=== PATIENT | female | born 1950 | race Caucasian/White ===

== ENCOUNTER 2022-06-28 14:26 | Outpatient (REF) | payer MEDICARE, OTHER, SELFPAY ==
[2022-06-28 15:43] LABS: Vitamin B12 375 pg/mL (200-900)
== END 2022-06-28 14:27 | disposition home or self-care (01) ==
LOC: HO.LAB 14:26
PROVIDERS: PCP Internal Medicine; Visit Provider Psychiatry & Neurology Neurology
DX: G31.84 Mild cognitive impairment of uncertain or unknown etiology (principal)
CPT/HCPCS: 36415; 82607

== ENCOUNTER 2025-03-20 08:42 | Outpatient (AMB) | payer MEDICARE, OTHER, SELFPAY ==
--- NOTE | 2025-03-20 08:51 | MHC.OFFVIS ---
Intake Visit Reasons: 6 month AD/ Conf Accompanied by: Daughter Allergies acetaminophen (From PERCOCET) Allergy (Unknown, Unverified 03/20/25 08:55) VOMITING oxycodone (From PERCOCET) Allergy (Unknown, Unverified 03/20/25 08:55) VOMITING Medication List - Last Reconciled 03/20/25 by Rae Corral CNP atorvastatin 10 mg PO DAILY donepezil 10 mg PO BEDTIME lorazepam mg PO memantine 5 mg PO BID metformin 500 mg PO DAILY metoprolol tartrate 12.5 mg PO BID sertraline 50 mg PO DAILY warfarin mg PO HPI Comments Details: 74-year-old woman with dementia. She was doing okay. She was living alone. She had family that checked in on her and [employer] 3 days/week who helped with cooking and cleaning. She was not cooking anymore, except for making toast. A few days ago, she accidentally left the faucet running in the kitchen. No safety concerns. She was walking her dog once a day. No falls. Mood was okay. Sleep was okay. [facility] Medical History (Updated 03/20/25 @ 08:55 by Rae Corral CNP) Alzheimer dementia MCI (mild cognitive impairment) Review of Systems Const Denies chills, Denies daytime sleepiness, Denies difficulty sleeping, Denies fatigue, Denies fever(s), Denies frequent falls, Denies headache(s), Denies increased appetite, Denies poor appetite, Denies snoring, Denies weakness, Denies weight gain and Denies weight loss Eyes Denies loss of vision ENT Denies vertigo, Denies dizziness and Denies headache(s) Card Denies chest pain at rest, Denies chest pain with activity, Denies syncope, Denies leg edema and Denies palpitations Resp Denies snoring GI Denies constipation, Denies heartburn, Denies diarrhea and Denies nausea Denies urinary frequency, Denies urinary incontinence and Denies urinary urgency Musc Denies abnormal gait, Denies numbness and Denies tingling Skin/Breast Denies dry skin and Denies rash Neuro Denies abnormal gait, Denies vertigo, Denies dizziness, Denies syncope, Denies frequent falls, Denies headache(s), Denies lack of coordination, Denies loss of vision, Reports memory loss, Denies numbness, Denies restless legs, Denies seizure-like activity, Denies tingling, Denies paresthesias, Denies tremor(s) and Denies weakness Psych Reports anxiety, Denies depression, Denies auditory hallucinations, Reports memory loss, Denies visual hallucinations and Denies suicidal ideation Endo Denies fatigue and Denies palpitations Physical Exam Const Other: General Appearance:? normal, in no acute distress. Skin:? no rashes, no significant birthmarks. Heart:? S1, S2 normal, no murmurs. Lungs:? clear anteriorly and posteriorly. Extremities:? no edema. Psych:? alert, cooperative with exam. Neuro Other: Mental Status:?Alert, normal affect. She is able to tell me she is here with her daughter. She is able to tell me her date. She is unable to tell me her age. Cranial Nerves:?Pupils are equal, round and reactive to light. External occular muscles are intact. Visual silverman are full. Face is symmetrical. Facial sensations are normal. Tongue is midline. Palate elevates symmetrically. Shoulder shrugging is normal. Hearing to bedside conversation is normal. Sensory Exam:?....? Coordination:?No ataxia,?no titubation.? Gait Exam: Within normal limits. Cerebellar Signs:?Ropacu-kl-ejoi and kcid-ts-mryo is normal.? Extrapyramidal System:?No tremor, rigidity with normal facial expressions.? Pronator Drift:?Not present.? Involuntary Movements:?No tremors seen.? Speech:?Normal.? Assessment & Plan Assessment & Plan (1) Alzheimer dementia: Code(s): G30.9 - Alzheimer's disease, unspecified; F02.80 - Dementia in other diseases classified elsewhere, unspecified severity, without behavioral disturbance, psychotic disturbance, mood disturbance, and anxiety Category: Medical Qualifiers: Alzheimer's disease onset: unspecified onset Dementia severity: unspecified severity Dementia behavioral or psychological symptom: unspecified whether behavioral, psychotic, or mood disturbance or anxiety Qualified Code(s): G30.9 - Alzheimer's disease, unspecified; F02.80 - Dementia in other diseases classified elsewhere, unspecified severity, without behavioral disturbance, psychotic disturbance, mood disturbance, and anxiety Plan: Continue donepezil 10mg 1 tablet at bedtime Continue memantine 5mg 1 tablet twice a day Stay physically and socially active. Coding Level of Care Code Est Pt Level 3 (22085) Diagnoses Alzheimer's dementia, unspecified dementia severity, unspecified timing of dementia onset, unspecified whether behavioral, psychotic, or mood disturbance or anxiety G30.9; F02.80 Alzheimer's disease onset: unspecified onset Dementia severity: unspecified severity Dementia behavioral or psychological symptom: unspecified whether behavioral, psychotic, or mood disturbance or anxiety
--- OUTSIDE RECORDS SUMMARY | 2025-03-20 08:57 | XMS_ITS ---
Author Name [facility] Organization Unknown History of Medication Use Medication Directions Dispensed Refills Start Date End Date Stat atorvastatin 10 mg tablet TAKE 1 TABLET BY MOUTH EVERY DAY active atorvastatin 10 mg tablet TAKE 1 TABLET BY MOUTH EVERY DAY active brimonidine 0.2 %-timolol 0.5 % eye drops INSTILL ONE DROP TO BOTH EYES TWICE DAILY active brimonidine 0.2 %-timolol 0.5 % eye drops INSTILL ONE DROP TO BOTH EYES TWICE DAILY active donepezil 5 mg tablet TAKE 1 TABLET BY MOUTH EVERY DAY AT BEDTIME FOR 90 DAYS active hydromorphone 2 mg tablet TAKE 1 TABLET EVERY 4 TO 6 HOURS BY MOUTH active lisinopril 30 mg tablet TAKE 1 TABLET BY MOUTH EVERY DAY active metformin 500 mg tablet TAKE 1 TABLET BY MOUTH EVERY DAY WITH BREAKFAST active metformin 500 mg tablet TAKE 1 TABLET BY MOUTH EVERY DAY WITH BREAKFAST active methylprednisolone 4 mg tablets in a dose pack TAKE 6 TABLETS ON DAY 1 DIRECTED ON PACKAGE AND DECREASE BY 1 TAB EACH DAY FOR A TOTAL OF 6 DAYS active metoprolol tartrate 25 mg tablet TAKE 1 TABLET BY MOUTH TWICE A DAY active sertraline 50 mg tablet TAKE 1 TABLET BY MOUTH EVERY DAY active timolol maleate 0.5 % eye drops INSTILL 1 DROP INTO BOTH EYES EVERY DAY IN THE MORNING active timolol maleate 0.5 % eye drops INSTILL 1 DROP INTO BOTH EYES EVERY DAY IN THE MORNING active tobramycin 0.3 % eye drops APPLY 1 DROP TO THE EYE EVERY 4 HOURS (WHILE AWAKE) FOR 7 DAYS. active tramadol 50 mg tablet TAKE 1 TABLET BY MOUTH EVERY 8 HOURS NEEDED FOR PAIN active Problems Problem Status Onset Date Problem Type Date of Resoluti on Source Osteoarthritis of right knee joint active 2023-02-08 ProblemAct [facility] Arthritis of knee active 2023-02-08 ProblemAct [facility] History of right total knee replacement active 2023-04-21 ProblemAct [facility] Encounters Encounter Type Encounter Reason Primary Diagnosis Location Date Ambulatory [facility] 04/30/2024 Ambulatory [facility] 08/26/2023 Ambulatory [facility] 08/24/2023 Ambulatory [facility] 05/23/2023 Ambulatory [facility] 05/20/2023 Ambulatory [facility] 05/17/2023 Ambulatory [facility] 04/21/2023 Ambulatory [facility] 04/21/2023 Ambulatory [facility] 04/19/2023 Ambulatory [facility] 04/15/2023 Ambulatory Anxiety disorder, unspecified Anxiety disorder, unspecified [facility] 04/04/2023 Ambulatory [facility] 03/31/2023 Ambulatory Anemia, unspecified Anemia, unspecified [facility] 03/10/2023 [facility] 03/07/2023 Ambulatory [facility] 02/24/2023 Ambulatory [facility] 02/08/2023 Ambulatory [facility] 02/08/2023 Ambulatory [facility] 02/08/2023 Ambulatory [facility] 01/10/2023 Ambulatory [facility] 01/10/2023 Ambulatory [facility] 01/10/2023 Ambulatory [facility] 01/10/2023 Ambulatory [facility] 01/06/2023 Ambulatory [facility] 11/16/2022 Care Team Organization Name Specialty Phone Email Start Date End Da te [facility] 202203/05/2025 [facility] 023 03/10/2023 [facility] 03/05/2025 [facility] 01/28/2023 04/09/2024 [facility] MARIEL FARRAR Primary Care 07/22/2022 04/09/2024 [facility] Deanna Mckeon Primary Care 06/29/2022 [facility]
--- OUTSIDE RECORDS SUMMARY | 2025-03-20 08:58 | XMS_ITS | Clinical Summary ---
Author Organization [facility] Address [address] [place] [address] Care Team Providers Care Scada Engineer Name Role Phone Ryan Sellers MD Primary Care Provider [phone] Allergies Active Allergy Reactions Criticality Noted Date Comments Oxycodone Nausea And Vomiting 04/06/2021 Oxycodone-Acetaminophen Nausea And Vomiting 02/2006 Medications Medication Sig Dispensed Refills Start Date End Date Status amLODIPine (NORVASC) tablet 2.5 mg Take 1 tablet (2.5 mg total) by mouth daily. 0 10/19/2021 Active atorvastatin (LIPITOR) tablet 10 mg Take 1 tablet (10 mg total) by mouth every night at bedtime. 0 12/08/2021 Active lisinopril (PRINIVIL,ZESTRIL) tablet 30 mg Take 1 tablet (30 mg total) by mouth daily. 0 12/09/2021 Active metFORMIN (GLUCOPHAGE) tablet 500 mg TAKE 1 TABLET ONCE DAILY WITH BREAKFAST 0 10/19/2021 Active metoprolol tartrate (LOPRESSOR) 25 MG tablet Take 1 tablet (25 mg total) by mouth 2 (two) times a day. 0 02/09/2022 Active omeprazole (PriLOSEC) 20 MG capsule Take 1 capsule (20 mg total) by mouth daily. 0 11/07/2007 Active sertraline (ZOLOFT) 50 MG tablet Take 1 tablet (50 mg total) by mouth daily. 0 12/09/2021 Active warfarin (COUMADIN) 5 MG tablet TAKE 1/2-1 TABLET BY MOUTH ONCE DAILY DIRECTED BY THE CLINIC. TAKE THE SAME TIME EACH DAY. DO NOT CHANGE DIETARY HABITS 0 06/24/2021 Active Calcium Carb-Cholecalciferol 600-20 MG-MCG TABS Take 1 tablet by mouth daily. 0 Active brimonidine-timolol (COMBIGAN) 0.2-0.5 % ophthalmic solution INSTILL ONE DROP TO BOTH EYES TWICE DAILY 0 Active Docusate Sodium (DSS) 100 MG CAPS Take 100 mg by mouth daily. 0 Active latanoprost (XALATAN) 0.005 % ophthalmic solution Place 1 drop into both eyes every night at bedtime. 0 Active timolol (TIMOPTIC) 0.5 % ophthalmic solution INSTILL 1 DROP INTO BOTH EYES EVERY DAY IN THE MORNING 0 Active HYDROmorphone (DILAUDID) 2 MG tablet Take 1 tablet (2 mg total) by mouth every 4 (four) hours as needed for pain. 30 tablet 0 04/05/2023 Active ondansetron (ZOFRAN-ODT) 8 MG disintegrating tablet Take 1 tablet (8 mg total) by mouth every 8 (eight) hours as needed for nausea. 20 tablet 0 04/05/2023 Active cefadroxil (DURICEF) 500 MG capsule Take 1 capsule (500 mg total) by mouth 2 (two) times a day. 20 capsule 0 04/05/2023 Active Active Problems Problem Noted Date Diagnosed Date Mild dehydration 03/16/2023 Anxiety 03/16/2023 Glaucoma 03/16/2023 Controlled type 2 diabetes m ellitus without complication, without long-term current use of insulin 03/16/2023 Obesity (BMI 30.0-34.9) 03/16/2023 History of hypertension 03/16/2023 History of hyperlipidemia 03/16/2023 REDD (obstructive sleep apnea) 03/16/2023 Atrial fibrillation 03/16/2023 Osteoarthritis of right knee 03/16/2023 Family History Medical History Relation Name Comments Heart disease Brother No Sig Med Hx Father Diabetes Mother No Sig Med Hx Son Relation Name Status Comments Brother Father (Age 70) Mother (Age 48) diabetes Son Social History Tobacco Use Types Packs/Day Years Used Date Smoking Tobacco: Never Smokeless Tobacco: Never Alcohol Use Standard Drinks/Week Comments Never 0 (1 standard drink = 0.6 oz pur e alcohol) Sex and Gender Information Value Date Recorded Sex Assigned at Female 03/07/2023 10:36 AM EDT Gender Identity Female 03/07/2023 10:36 AM EDT Sexual Orientation Choose not to disclose 2022 5:49 AM EDT Job Start Date Occupation Industry Not on file Not on file Not on file Last Filed Vital Signs Vital Sign Reading Time Taken Comments Blood Pressure 95/84 04/05/2023 7:39 AM EDT Pulse 92 04/05/2023 7:39 AM EDT Temperature 36.5 C (97.7 F) 04/05/2023 7:39 AM EDT Respiratory Rate 20 04/05/2023 7:39 AM EDT Oxygen Saturation 95% 04/05/2023 7:39 AM EDT Inhaled Oxygen Concentration - - Weight 69.4 kg (153 lb) 04/04/2023 5:59 AM EDT Height 160 cm (5' 3 ) 04/04/2023 5:59 AM EDT Body Mass Index 27.1 04/04/2023 5:59 AM EDT Plan of Treatment Health Maintenance Due Date Last Done Comments Hepatitis C Screening 1950 Depression Screening 1960 Preventative Health Evaluation 1966 Shingrix-Zoster Vaccine (1 of 2) 1998 Pneumococcal Vaccine (2 of 2 - PCV) 08/09/2008 08/09/2007 Fall Risk Assessment 2013 Osteoporosis Screening (DEXA Scan) 2013 RSV Adult > 60+ Yrs or (1 - 1-dose 75+ series) 11/14/2023 COVID-19 Vaccine (2 - season) 2024 10/25/2020 Influenza Vaccine (#1) 2025 , 05/22/2020, 06/07/2014, Additional history exists DTap / Tdap / Td (3 - Td or Tdap) 02/17/2032 02/16/2022, 04/02/2011 Hepatitis B Vaccines Aged Out No long er eligible based on patient's age to complete this topic RSV Ped < 20 months Aged Out No longe r eligible based on patient's age to complete this topic Medical Devices Implanted Type Area Dobie Man Device Identifier Shelf Expiration Date Model / Serial / Lot Congruent Tibial Insert Implanted:Qty : 1 on 04/04/2023 by Boy Ozuna MD at [facility] Total Joint Right: Knee [id number] 04/19/2024 / / [id number] Retaining [place] Implanted:Qty : 1 on 04/04/2023 by Boy Ozuna MD at [facility] Total Joint Right: Knee [id number] 12/14/2027 / / [id number] [employer] Simplex Radiopq Stry-Howm [id number] - [id number] Implanted:Qty : 1 on 04/04/2023 by Boy Ozuna MD at [facility] Right: Knee [employer] [id number] 06/20/2025 6190-08-22 0 / / [id number] [employer] Simplex Radiopq Stry-How [id number] [id number] - [id number] Implanted:Qty : 1 on 04/04/2023 by Boy Ozuna MD at [facility] Right: Knee [employer] [id number] 06/20/202591 0 / / [id number] Knee Tibial Baseplate Sz3 Rt Crng[employer] [id number] - [id number] Implanted:Qty : 1 on 04/04/2023 by Boy Ozuna MD at [facility] Right: Knee [employer] [id number] 11/07/2027 [id number] / / [id number] C R Femur Non-Porous Sz 3+ R Crng-Omls [id number] - [id number] Implanted:Qty : 1 on 04/04/2023 by Boy Ozuna MD at [facility] Right: Knee [employer] [id number] 10/12/2027 [id number] / / [id number] Insurance Payer Benefit Plan / Group Subscriber ID Effective Dates Phone Address [facility] [id number] 2014-Prese nt 1 [facility] [address] [place] [phone] [facility] [place]B [id number] 2013-Prese nt [address] [address] [place] [address] Medicare Advance Directives For more information, please contact: [phone] Latest Code Status on File Code Status Date Activated Date Inactivated Comments Full Code 04/04/2023 7:27 AM 04/05/2023 8:49 PM This code status was ascertained in the following way: discussion with healthcare product support representative . Code Status History Code Status Date Activated Date Inactivated Comments Full Code 04/04/2023 5:37 AM 04/04/2023 7:27 AM This code status was ascertained in the following way: discussion with patient . Care Teams Scada Engineer Relationship Specialty Start Date End Date Ryan Sellers MD PCP - General Internal Medicine 03/08/22
--- OUTSIDE RECORDS SUMMARY | 2025-03-20 08:58 | XMS_ITS | Clinical Summary ---
Author Organization 175 [facility] Address [address] [place] [address] Phone Care Team Providers Care Assistance Coordinator Name Role Phone Ryan Sellers MD Primary Care Provider [phone] Allergies Active Allergy Reactions Criticality Noted Date Comments Oxycodone 04/06/2021 Oxycodone-Acetaminophen Nausea And Vomiting 02/2006 Medications warfarin (COUMADIN) 5 mg tablet 2.5 Tuesday & Tuesday 5mg on Tuesday 4 Active donepeziL (ARICEPT) 5 mg tablet Take 2 Tablets by mouth at bedtime. Nuerology fills meds Active memantine (NAMENDA) 5 mg tablet Take 1 tablet (5 mg total) by mouth 2 (two) times a day. Active hydrOXYzine HCL (ATARAX) 25 mg tablet TAKE 1 TABLET BY MOUTH 2 TIMES DAILY NEEDED FOR ANXIETY. PLEASE TAKE PRIOR TO DENTAL PROCEDURE 4 Active omeprazole OTC (PriLOSEC OTC) 20 mg EC tablet OTC 8 Active calcium carbonate-vitam in D3 600 mg-5 mcg (200 unit) per tablet Take 500 mg by mouth. Active LORazepam (ATIVAN) 1 mg tablet Take 1 tablet (1 mg total) by mouth every 6 (six) hours if needed for anxiety. For dental procedure Active metoprolol tartrate (LOPRESSOR) 25 mg tablet TAKE 1/2 TABLET TWICE A DAY BY MOUTH 90 tablet 1 5 Active atorvastatin (LIPITOR) 10 mg tablet TAKE 1 TABLET BY MOUTH EVERY DAY 90 tablet 1 5 Active sertraline (ZOLOFT) 50 mg tablet TAKE 1 TABLET BY MOUTH EVERY DAY 90 tablet 1 5 Active metFORMIN (GLUCOPHAGE) 500 mg tablet TAKE 1 TABLET BY MOUTH EVERY DAY WITH BREAKFAST 90 tablet 1 5 Active Active Problems Problem Noted Date Diagnosed Date Atrial fibrillation ([facility] V24, [facility] V28) 1 09/04/2023 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 Date 06/14/2018. SE 58 % SM 60 %; spent 4 % of the study in REM. On CPAP @ 12; RDI 1.8 (AHI 1.8), Central apneas 4; Obstructive apneas 0; Mixed apneas 0; hypopneas 0; RERAs 0; and, average oxygen saturation was 95%. For the entire study, PLMs ~90. - Obstructive Sleep Apnea - severe; mostly hypopneas and central apneas; with sleep related hypoventilation by 2018 home polysomnogram. Last Assessment & Plan: The patient confirms that she is compliant with nightly usage of her CPAP instructed that she continue to do so due to the multiple benefits. Pure hypercholesterolemia 12/19/2008 Overview (07/16/2024): Last Assessment & Plan: Her cholesterol was last assessed LDL was 115 she does appear to have labs upcoming with her primary care physician given that she is a diabetic ideally she would be better served for risk factor modification if her LDL was closer to 70. Could consider increasing her atorvastatin. Meantime continue lifestyle modifications diet instructions provided. Overweight (BMI 25.0-29.9) 12/19/2008 Knee pain 08/09/2007 Overview (07/16/2024): S/p arthroscopic knee surgery by Dr. Kinney, 07/12/07 S/p arthroscopic knee surgery by Dr. 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 02/27/2025 Anticoagulation - Warfarin Visit [facility] [address] [phone] Lakshmi Reeves LPN Atrial fibrillation, unspecified type (CMS/HCC V24, CMS/HCC V28) (Primary Dx); FDC (current) use of anticoagulants 02/11/2025 [facility] [address] [phone] Brady, Tiff, JOB TRAINING SUPERVISOR Atrial fibrillation, unspecified type (CMS/HCC V24, CMS/HCC V28) (Primary Dx); 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 02/08/2025 2:00 PM EDT Office Visit [address] [phone] Lin Mayer MD REDD (obstructive sleep apnea) (Primary Dx); CSA (central sleep apnea); ILD (interstitial lung disease) (CMS/HCC V24, CMS/HCC V28); Lung nodules 02/08/2025 1:00 PM EDT Ancillary Procedure [address] [phone] Interstitial lung disease (CMS/HCC V24, CMS/HCC V28); ILD (interstitial lung disease) (CMS/HCC V24, CMS/HCC V28) 01/30/2025 Anticoagulation - Warfarin Visit [facility] [address] [phone] Lakshmi Reeves, JOB TRAINING SUPERVISOR Atrial fibrillation, unspecified type (CMS/HCC V24, CMS/HCC V28) (Primary Dx); FDC (current) use of anticoagulants 01/23/2025 Anticoagulation - Warfarin Visit Coumadin [address] [phone] Lakshmi Reeves, JOB TRAINING SUPERVISOR Atrial fibrillation, unspecified type (CMS/HCC V24, CMS/HCC V28) (Primary Dx); 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 01/09/2025 Anticoagulation - Warfarin Visit Coumadin [address] [phone] Lakshmi Reeves, JOB TRAINING SUPERVISOR Atrial fibrillation, unspecified type (CMS/HCC V24, CMS/HCC V28) (Primary Dx); FDC (current) use of anticoagulants 12/26/2024 [facility] [address] [phone] Lakshmi Reeves, JOB TRAINING SUPERVISOR Atrial fibrillation, unspecified type (CMS/HCC V24, CMS/HCC V28) (Primary Dx); 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 12/21/2024 3:19 PM EDT - 12/21/2024 11:59 PM EDT Hospital Encounter CT Scan - [address] [phone] Interstitial pulmonary disease, unspecified ([facility] V24, [facility] V28) Discharge Disposition: Home or Self Care 12/19/2024 Anticoagulation - Warfarin Visit [facility]madin Clinic - [address] [phone] Lakshmi Reeves LPN Atrial fibrillation, unspecified type ([facility] V24, [facility] V28) (Primary Dx); 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 from Last 3 Months Immunizations Name Administration Dates Next Due Influenza trivalent, 0.5mL ( Fluad) 65yo and older 08/17/2024,06/13/2023,04/30/2021,05/22,06/07/2014,07/13/2013,06/22/2011 ,07/30/2009,06/10/2007,07/24/2006 Influenza trivalent, 0.5mL, preservative free (Fluarix; FluLaval; Fluzone) ages 6mo and older (Afluria) 3 years and older 06/17/2008 [facility] [place] SARS-CoV-2 COVID -19, vector-nr, rS-Ad26, preservative free 10/25/2020 Pneumococcal conjugate 20 va lent (Prevnar 20, PCV 20) 2mo and older 06/13/2023 Pneumococcal polysaccharide 23 valent (Pneumovax 23) 2yo and older 08/09/2007 Td Tetanus diptheria (Tdvax) 7yo and older 12/26/2002 Tdap Tetanus diptheria acell ular pertussis (Boostrix; Adacel) 7yo and older 02/16/2022,04/02/2011 Zoster recombinant (Shingrix ) 19yo and older 12/03/2024,08/17/2024 Surgical History Surgery Date Site/Laterality Comments HYSTERECTOMY PROCEDURE:HYSTERECTOMY CHOLECYSTECTOMY PROCEDURE:CHOLECYSTECTOMY KNEE SURGERY PROCEDURE:KNEE SURGERY COLONOSCOPY PROCEDURE:COLONOSCOPY UPPER GASTROINTESTINAL ENDOSCOPY PROCEDURE:UPPER GASTROINTESTINAL ENDOSCOPY TOTAL KNEE ARTHROPLASTY 04/04/2023 Right PROCEDURE:TOTAL KNEE ARTHROPLASTY;COMMENT:Procedur e: REPLACEMENT TOTAL KNEE WITH NAVIGATION; Surgeon: Boy Ozuna MD; Location: [facility] Service: Orthopedics; Laterality: Right; COLONOSCOPY 03/21/2007 PROCEDURE: HISTORICAL COLONOSCOPY; COMMENT: normal; repeat in ten years HYSTERECTOMY PROCEDURE: HISTORICAL TOTAL HYSTERECTOMY WITH BSO BREAST BIOPSY PROCEDURE: BX BREAST; PERC NEEDLE CORE W/IMAG GUID; COMMENT: unsure the side COLONOSCOPY 09/02/2021 PROCEDURE: HISTORICAL COLONOSCOPY; COMMENT: tubular adenoma Medical History Medical History Date Comments High blood pressure DX:High bloo d pressure Heart disease DX:Heart disease Diabetes mellitus ([facility] V 24, [facility] V28) DX:Diabetes mellitus (HCC) GERD (gastroesophageal reflu x disease) DX:GERD (gastroesophageal re flux disease) Hyperlipidemia DX:Hyperlipidemi a Arrhythmia DX:Arrhythmia;CO MMENT:afib Sleep apnea DX:Sleep apnea JACKSON (dyspnea on exertion) DX:JACKSON (dyspnea on exertion) Anxiety DX:Anxiety Cataract DX:Cataract Glaucoma DX:Glaucoma Diabetes mellitus, type II ( [facility] V24, [facility] V28) DX:Diabetes mellitus, type I I ([facility]) Knee pain 08/09/2007 DX:Knee pain; CO MMENT: S/p arthroscopic knee surgery by Dr. Kinney, 07/12/07 Type II or unspecified type diabetes mellitus without mention of complication, not stated as uncontrolled 12/19/2008 DX:Type II or unspecified ty pe diabetes mellitus without mention of complication, not stated as uncontrolled Pure hypercholesterolemia 12/19/2008 DX:Pur e hypercholesterolemia Diabetes mellitus with microalbuminuria ([facility] V24, [facility] V28) 01/11/2019 DX:Diabetes mellitus with microalbuminuria (HCC) Family History Medical History Relation Name Comments Heart disease Brother 1 Diabetes Brother 2 Hypertension Brother 3 No Known Problems Father Diabetes Mother Other: oral cancer Other maternal niece Breast cancer Sister 1 40's Diabetes Sister 1 40's Hypertension Sister 2 Other: breast Sister 3 age 40 Other: cirrhosis of liver Sister 4 no ETOH Other: pancraetic Ca Sister 5 No Known Problems Son Relation Name Status Comments Brother 1 Brother 2 Brother 3 Father (Age 70) Mother Other Sister 1 40's Sister 2 Sister 3 Sister 4 Sister 5 Son Social History Tobacco Use Types Packs/Day Years Used Date Smoking Tobacco: Never Passive Smoke Exposure: Never Smokeless Tobacco: Never Alcohol Use Standard Drinks/Week Comments No 0 (1 standard drink = 0.6 oz pur e alcohol) Housing Instability Answer Date Recorde d Are you worried that in the next 2 months you may not have stable housing? No 03/18/2025 Food Access & Nutrition Answer Date Rec orded Do you have access to a vari ety of food including fruits and vegetables? Yes 03/18/2025 Access to Healthcare Answer Date Record ed Within the last 3 months, ho w many times did you visit the emergency department for your medical care? 0 03/18/2025 Health Literacy Answer Date Recorded How often do you need to hav e someone help you when you read instructions, pamphlets, or other written material from your doctor or pharmacy? Sometimes 03/18/2025 Caregiver: How often do you need to have someone help you when you read instructions, pamphlets, or other written material from your doctor or pharmacy? Not on file 03/18/2025 Financial Risk Answer Date Recorded How hard is it for you to pa y for the very basics like food, housing, medical care, and air conditioning / heating? Not very hard 03/18/2025 Transportation Answer Date Recorded Has the lack of transportati on kept you from meetings, work, or from getting things needed for daily living? No Has the lack of transportati on kept you from medical appointments or from getting medications? No 03/18/2025 Social Isolation Answer Date Recorded How often do you feel lonely or isolated from those around you? Sometimes 09/09/2024 Food Risk Answer Date Recorded Within the past 12 months we worried whether our food would run out before we got money to buy more. Never true 03/18/2025 Within the past 12 months th e food we bought just didn't last and we didn't have money to get more. Never true 03/18/2025 Dependent Care Answer Date Recorded Do you need help finding or paying for care for your loved ones. For example, child welfare director or elderly care for an older adult? No 03/18/2025 Education Answer Date Recorded Do you think completing more education or training, like finishing a GED, going to college, or learning a trade, would be helpful for you? N/A 03/18/2025 Employment and Income Answer Date Recor ded During the last four weeks, have you been actively looking for work? No 03/18/2025 Living Situation Answer Date Recorded What is your living situation? 0 03/18/2025 Comments Unknown Sex and Gender Information Value Date Recorded Sex Assigned at Not on file Legal Sex Female 10:56 AM EST Gender Identity Not on file Sexual Orientation Not on file Obstetrics History Last Filed Vital Signs Vital Sign Reading Time Taken Comments Blood Pressure 120/105 02/08/2025 1:13 PM EDT Pulse 89 02/08/2025 1:13 PM EDT Temperature 36.1 C (97 F) 02/08/2025 1:13 PM EDT Respiratory Rate 16 02/08/2025 1:13 PM EDT Oxygen Saturation 100% 02/08/2025 1:13 PM EDT Inhaled Oxygen Concentration - - Weight 59 kg (130 lb) 02/08/2025 1:13 PM EDT Height 160 cm (5' 3 ) 02/08/2025 1:13 PM EDT Body Mass Index 23.03 02/08/2025 1:13 PM EDT Plan of Treatment Upcoming Encounters Date Type Department Care Team (Late st Contact Info) Description 03/20/2025 3:00 PM EDT Office Visit Adult Medicine [address] [phone] Ryan Sellers MD [address] [place] [address] 03/25/2025 4:00 PM EDT Appointment Radiology Department - [address] [phone] 08/09/2025 3:30 PM EST Office Visit Pulmonolgy - [place] [facility] [address] [place] [address] [phone] Lin Mayer MD [address] [phone] 10/11/2025 1:30 PM EST Ancillary Procedure [facility] [address] [place] [address] Health Maintenance Due Date Last Done Comments Diabetes: Annual Foot Exam 1960 Medicare Annual Wellness Visit 07/30/2022 RSV Immunization Adult Patients (1 - 1-dose 75+ series) 11/14/2023 COVID-19 Vaccine ( season) 2024 09/18/2021, 10/25/2020 Diabetes: Annual Retina Eye Exam 02/12/2025 02/13/2024 Diabetes: Annual Urine Albumin-Creatinine Ratio (uACR) 02/26/2025 02/27/2024 Diabetes: Blood Sugar Control Test (HGBA1C) 03/31/2025 10/01/2024, 02/27/2024, 02/27/2024, Additional history exists Influenza Vaccine (#1) 2025 , 06/13/2023, 04/30/2021, Additional history exists Diabetes: Annual GFR (Glomerular Filtration Rate) 10/01/2025 10/01/2024, 02/27/2024, 03/10/2023, Additional history exists Hypertension/CHF/CAD Annual BMP Blood Test 10/01/2025 10/01/2024, 02/27/2024, 03/10/2023, Additional history exists Social Influencers of Health Screening 03/18/2026 03/18/2025 Falls Risk Assessment 03/20/2026 03/20/2025, 025 Colorectal Cancer Screening: Colonoscopy 09/02/2026 09/02/2021 Cholesterol Screening (Lipid Panel) 04/29/2028 04/29/2023 Osteoporosis Screening (Bone Density Screening) 08/24/2031 08/24/2021 DTaP,Tdap,and Td Vaccines (4 - Td or Tdap) 02/17/2032 02/16/2022, 04/02/2011, 12/26/2002 Hepatitis C Screening Completed 03/04/2014 Pneumococcal Vaccine: 50+ Years Completed 06/13/2023, 08/09/2007 Breast Cancer Screening Discontinued 03/02/20, 03/02/2024, 01/21/2023, Additional history exists Zoster Vaccines Completed 12/03/2024, 08/17/2024 Depression Screening Completed 03/18/2025, 09/21/19 HIB Vaccines Aged Out No longer eligi ble based on patient's age to complete this topic HPV Vaccines Aged Out No longer eligi ble based on patient's age to complete this topic Hepatitis A Vaccines Aged Out No long er eligible based on patient's age to complete this topic Hepatitis B Vaccines Aged Out No long er eligible based on patient's age to complete this topic IPV Vaccines Aged Out No longer eligi ble based on patient's age to complete this topic MMR Vaccines Aged Out No longer eligi ble based on patient's age to complete this topic Meningococcal ACWY Vaccine Aged Out N o longer eligible based on patient's age to complete this topic Meningococcal B Vaccine Aged Out No l onger eligible based on patient's age to complete this topic RSV Immunization Patients Under 20 months Aged Out No longer eligible based on patient's age to complete this topic Varicella Vaccines Aged Out No longer eligible based on patient's age to complete this topic Medical Devices Implanted Type Area Gear Lapper Device Identifier Shelf Expiration Date Model / Serial / Lot Congruent Tibial Insert Implanted:Qty : 1 on 04/04/2023 by Boy Ozuna MD Joints Right: Knee [id number] 04/19/2024 / / [id number] Retaining Prichard Implanted:Qty : 1 on 04/04/2023 by Boy Ozuna MD Joints Right: Knee [id number] 12/14/2027 / / [id number] [employer] Simplex Radiopq Stry-Howm [id number] Implanted:Qty : 1 on 04/04/2023 by Boy Ozuna MD Right: Knee [employer] [id number] 06/20/202591 0 / / [id number] [employer] Simplex Radiopq Stry-Howm [id number] Implanted:Qty : 1 on 04/04/2023 by Boy Ozuna MD Right: Knee [employer] [id number] 06/20/2025 6191 0 / / [id number] Knee Tibial Baseplate Sz3 Rt Crng-Omls [id number] Implanted:Qty : 1 on 04/04/2023 by Boy Ozuna MD Right: Knee [employer] [id number] 11/07/2027 [id number] / / [id number] C R Femur Non-Porous Sz 3+ R [facility] [id number] Implanted:Qty : 1 on 04/04/2023 by Boy Ozuna MD Right: Knee [employer] [id number] 10/12/2027 [id number]-[id number] / / [id number] Procedures Procedure Name Priority Date/Time Associated Diagnosis Comments PROTHROMBIN TIME WITH INR 03/06/2025 PROTHROMBIN TIME WITH INR Routine 03/06/2025 PROTHROMBIN TIME WITH INR 02/27/2025 PROTHROMBIN TIME WITH INR Routine 02/27/2025 PROTHROMBIN TIME WITH INR 02/11/2025 PROTHROMBIN TIME WITH INR Routine 02/11/2025 PROTHROMBIN TIME WITH INR 01/30/2025 PROTHROMBIN TIME WITH INR Routine 01/30/2025 PROTHROMBIN TIME WITH INR 01/23/2025 PROTHROMBIN TIME WITH INR Routine 01/23/2025 PROTHROMBIN TIME WITH INR 01/09/2025 PROTHROMBIN TIME WITH INR Routine 01/09/2025 PROTHROMBIN TIME WITH INR 12/26/2024 PROTHROMBIN TIME WITH INR Routine 12/26/2024 CT CHEST WO CONTRAST Routine 12/21/2024 3:34 PM EDT Interstitial pulmonary disease, unspecified (CMS/HCC V24, CMS/HCC V28) PROTHROMBIN TIME WITH INR 12/19/2024 PROTHROMBIN TIME WITH INR Routine 12/19/2024 COMPREHENSIVE METABOLIC PANEL Routine 10/01/2024 8:05 AM EST Weight loss HEMOGLOBIN A1C Routine 10/01/2024 8:05 AM EST Diabetes mellitus with microalbuminuria (CMS/HCC V24, CMS/HCC V28) Weight loss SCREENING MAMMOGRAPHY BI 2-VIEW BREAST INC CAD Routine 03/02/2024 3:34 PM EDT Encounter for screening mammogram for malignant neoplasm of breast URINE ALBUMIN CREATININE RATIO Routine 02/27/2024 DIABETES EYE EXAM Routine 02/13/2024 DEPRESSION SCREENING Routine 09/21/2023 LIPID PANEL Routine 04/29/2023 COLONOSCOPY Routine 09/02/2021 DXA BONE DENSITY STUDY 1+ SITS AXIAL SKEL Routine 08/24/2021 10:15 AM EST Asymptomatic menopausal state HEPATITIS C SCREENING Routine 03/04/2014 from Last 3 Months or Most Recently Relevant to Health Maintenance Results * Prothrombin time with INR (03/06/2025) Only the most recent of16 resultswithin the time period is included. us Provider [facility] LAB BLOOD ORDERABLES Fin al Result * CT Chest wo Contrast (12/21/2024 3:34 PM EDT) Anatomical Region Laterality Modality Body Computed Tomogra phy 12/21/2024 7:01 PM EDT Impressions 12/21/2024 7:22 PM EDT 1. Minimal interstitial changes within the bilateral posterior lower lobes right greater than left grossly stable from prior examination. No evidence of honeycombing or consolidative fibrosis. -------- FINAL REPORT -------- Dictated By: Mirza Ceballos Dictated Date: 12/21/2024 19:01 ET Assigned Physician: Mirza Ceballos Reviewed and Electronically Signed By: Mirza Ceballos Signed Date: 12/21/2024 19:22 ET Workstation ID: [id number] Transcribed By: Self Edit Transcribed Date: 12/21/2024 19:01 ET Narrative 12/21/2024 7:[address] CHEST HISTORY: interstitial pulmonary disease. TECHNIQUE: Chest CT was performed utilizing contiguous noncontrasted axial images from the thoracic inlet to below the diaphragm. The images were reformatted in the coronal and sagittal planes. Radiation dosage is 8.38mGy COMPARISON: CT chest from 12/22/2023 FINDINGS: Base of neck: The thyroid and base of the neck are within normal limits. Mediastinum: The heart is normal in size, no pericardial effusion. Moderate atherosclerosis of the thoracic aorta. Subcentimeter lymph nodes within the mediastinal stations. Lungs: Evaluation of the lung parenchyma demonstrates a 2 mm solid nodule along the left fissure (series 2, image 137). The tiny right middle lobe 3 mm solid nodule along the fissure is grossly stable. Fine linear mild interstitial thickening within the subpleural right lower lobe. Minimal interstitial thickening within the medial right lower lobe related to osteophytes. Trace fine linear interstitial thickening within the posterior left lower lobe. No focal consolidation or effusion The trachea and mainstem bronchi are patent. Upper Abdomen: Limited visualization of the extreme upper abdomen demonstrates patient is status post cholecystectomy. Small hiatal hernia. MSK: Soft tissues are normal. Moderate degenerative changes of the thoracic spine. Procedure Note Mirza Ceballos MD - 12/21/2024 CT CHEST HISTORY: interstitial pulmonary disease. TECHNIQUE: Chest CT was performed utilizing contiguous noncontrasted axialimages from the thoracic inlet to below the diaphragm. The images werereformatted in the coronal and sagittal planes. Radiation dosage is8.38mGy COMPARISON: CT chest from 12/22/2023 FINDINGS: Base of neck: The thyroid and base of the neck are within normal limits. Mediastinum: The heart is normal in size, no pericardial effusion.Moderate atherosclerosis of the thoracic aorta. Subcentimeter lymph nodeswithin the mediastinal stations. Lungs: Evaluation of the lung parenchyma demonstrates a 2 mm solid nodulealong the left fissure (series 2, image 137). The tiny right middle lobe3 mm solid nodule along the fissure is grossly stable. Fine linear mildinterstitial thickening within the subpleural right lower lobe. Minimalinterstitial thickening within the medial right lower lobe related toosteophytes. Trace fine linear interstitial thickening within theposterior left lower lobe. No focal consolidation or effusion The tracheaand mainstem bronchi are patent. Upper Abdomen: Limited visualization of the extreme upper abdomendemonstrates patient is status post cholecystectomy. Small hiatalhernia. MSK: Soft tissues are normal. Moderate degenerative changes of thethoracic spine. IMPRESSION: 1. Minimal interstitial changes within the bilateral posterior lowerlobes right greater than left grossly stable from prior examination. Noevidence of honeycombing or consolidative fibrosis. -------- FINAL REPORT -------- Dictated By: Mirza Ceballos Dictated Date: 12/21/2024 19:01 ET Assigned Physician: Mirza Ceballos Reviewed and Electronically Signed By: Mirza Ceballos Signed Date: 12/21/2024 19:22 ET Workstation ID: [id number] Transcribed By: Self Edit Transcribed Date: 12/21/2024 19:01 ET Lin Mayer MD IMG CT PROCEDURES Final Result * Hemoglobin A1c (10/01/2024 8:05 AM EST) Hemoglobin A1C 5.8 <6.5 % LAB CHEMISTRY METHOD 10/01/2024 1:38 PM EST [facility] Mean Bld Glu Estim. 120 mg/dL LAB CHEMISTRY METHOD 10/01/2024 1:38 PM EST [facility] Blood Venous blood specimen / Unknown Venipuncture / Unknown 10/01/2024 8:05 AM EST 10/01/2024 8:05 AM EST us Ryan Sellers MD LAB BLOOD ORDERABLES Final Resul t [facility] [address] [place] [address], [place] [phone] * Comprehensive metabolic panel (10/01/2024 8:05 AM EST) [facility] Signature Sodium 141 133 - 145 mmol/L LAB CHEMISTRY METHOD 10/01/2024 10:24 AM [facility] Potassium 4.2 3.5 - 5.5 mmol/L LAB CHEMISTRY METHOD 10/01/2024 10:24 AM [facility] Chloride 104 96 - 110 mmol/L LAB CHEMISTRY METHOD 10/01/2024 10:24 AM [facility] CO2 30 21 - 32 mmol/L LAB CHEMISTRY METHOD 10/01/2024 10:24 AM [facility] Anion Gap 7 3 - 11 LAB CHEMISTRY METHOD 10/01/2024 10:24 AM [facility] Glucose 93 70 - 100 mg/dL LAB CHEMISTRY METHOD 10/01/2024 10:24 AM [facility] BUN 15 5 - 25 mg/dL LAB CHEMISTRY METHOD 10/01/2024 10:24 AM [facility] Creatinine 0.84 0.50 - 1.10 mg/dL LAB CHEMISTRY METHOD 10/01/2024 10:24 AM [facility] eGFR 73 >=60 mL/min/1. 73m2 LAB CHEMISTRY METHOD 10/01/2024 10:24 AM [facility] Comment:Calculation based on the Chronic Kidney Disease Epidemiology Collaboration (CKD-EPI) equation refit without adjustment for race. BUN/Creatinine Ratio 17.9 LAB CHEMISTRY METHOD 10/01/2024 10:24 AM [facility] Calcium 9.2 8.5 - 10.5 mg/dL LAB CHEMISTRY METHOD 10/01/2024 10:24 AM [facility] AST (SGOT) 21 10 - 42 unit/L LAB CHEMISTRY METHOD 10/01/2024 10:24 AM [facility] ALT (SGPT) 20 10 - 60 unit/L LAB CHEMISTRY METHOD 10/01/2024 10:24 AM [facility] Alkaline Phosphatase 74 42 - 121 unit/L LAB CHEMISTRY METHOD 10/01/2024 10:24 AM EST [facility] Total Protein 7.1 6.0 - 8.0 g/dL LAB CHEMISTRY METHOD 10/01/2024 10:24 AM EST [facility] Albumin 3.8 3.2 - 5.0 g/dL LAB CHEMISTRY METHOD 10/01/2024 10:24 AM [facility] Total Bilirubin 0.7 0.0 - 1.4 mg/dL LAB CHEMISTRY METHOD 10/01/2024 10:24 AM EST [facility] Blood Venous blood specimen / Unknown Venipuncture / Unknown 10/01/2024 8:05 AM EST 10/01/2024 8:05 AM EST us Ryan Sellers MD LAB BLOOD ORDERABLES Final Resul t [facility] [address] [place] [address], * SCREENING MAMMOGRAPHY BI 2-VIEW BREAST INC CAD (03/02/2024 3:34 PM EDT) Anatomical Region Laterality Modality Radiographic Rosa Maria ging 01/21/2023 9:58 AM EDT Narrative 03/05/2024 9:50 AM EDT This is a summary report. The complete report is available in the patient's medical record. If you cannot access the medical record, please contact the sending organization for a detailed fax or copy. Full field digital screening 2D C views and 3D tomosynthesis mammography, reviewed with CAD and compared to previous. The breasts are composed of fatty and fibroglandular tissue. No suspicious mass, architectural distortion or suspicious calcifications are identified. IMPRESSION: : No mammographic evidence of malignancy. BIRADS 1-Negative; N. 5 year breast cancer risk assessment 4.2 % Lifetime breast cancer risk assessment 8.8 % Breast cancer risk category Low (<15%) Procedure Note Angeline Parker MD - 06/06/2024 This is a summary report. The complete report is available in thepatient's medical record. If you cannot access the medical record, pleasecontact the sending organization for a detailed fax or copy. Full field digital screening 2D C views and 3D tomosynthesis mammography,reviewed with CAD and compared to previous. The breasts are composed offatty and fibroglandular tissue. No suspicious mass, architecturaldistortion or suspicious calcifications are identified. IMPRESSION: : No mammographic evidence of malignancy. BIRADS 1-Negative; N. 5 year breast cancer risk assessment 4.2 % Lifetime breast cancer risk assessment 8.8 % Breast cancer risk category Low (<15%) Ryan Sellers MD IMG XR PROCEDURES Final Result * Urine Albumin Creatinine Ratio (02/27/2024) [facility] Urine Albumin Creatinine Ratio abstracted Result [facility] HEALTH MAINTENANCE Final Result * Diabetes Eye Exam (02/13/2024) [facility] Diabetes: Annual Retina Eye Exam abstracted Result [facility] HEALTH MAINTENANCE Final Result * Depression Screening (09/21/2023) [facility] Depression Screening abstracted Result [facility] Final Result * (ABNORMAL) Lipid panel (04/29/2023) [facility] LDL/HDL Ratio 3 0 - 4 Triglycerides 165(A) 0 - 150 mg/dL Cholesterol 110 0 - 200 mg/dL HDL 41 >=40 mg/dL LDL Cholesterol 36 0 - 100 mg/dL Blood Venous blood specimen / Unknown Result [facility] LAB BLOOD ORDERABLES Pao l Result * Colonoscopy (09/02/2021) [facility] Colonoscopy No Interpretation , Abstracted Anatomical Region Laterality Modality Other Result [facility] HEALTH MAINTENANCE Final Result * DXA BONE DENSITY STUDY 1+ SITS AXIAL SKEL (08/24/2021 10:15 AM EST) Anatomical Region Laterality Modality Bone Densitometr y 05/11/2021 11:2 4 AM EDT Narrative 08/24/2021 11:22 AM EST BONE DENSITY Lumbar Spine T-score is -1.0 (SD relative to 20-29 y/o adult) Z-score is +1.3 (SD relative to age matched peers) This is normal by criteria defined by the WHO. Left Hip T-score is -1.6 Z-score is +0.4 This is consistent with osteopenia by criteria defined by the WHO. Comparison exam(s): significant decrease in bone density of hip and lumbar spine when compared to most recent bone density examination Confidence level is +/-95%. Impression: Based on the World Health Organization criteria, Lakshmi Miller should be classified as having osteopenia. This patient has a 11% risk of major osteoporotic fracture and a 2.0% risk of hip fracture over the next 10 years. (World Health Organization Fracture Risk Assessment) [facility] Department of Internal Medicine recommends using National Osteoporosis Foundation (NOF) guidelines in treatment decisions related to osteoporosis. NOF guidelines suggest considering treatment for postmenopausal women and men aged 50 or older presenting with the following: History of hip or vertebral fracture. T-score less than or equal to -2.5 (DXA) at the femoral neck, total hip, or spine, after appropriate evaluation to exclude secondary causes. Low bone mass (T-score between -1.0 and -2.5 at the femoral neck or spine) AND a 10-year probability of a hip fracture greater than or equal to 3% OR a 10-year probability of a major osteoporosis-related fracture greater than or equal to 20% based on the [place]-adapted WHO algorithm Please note that all treatment decisions require clinical judgment and consideration of individual patient factors, including patient preferences, co-morbidities, previous drug use, risk factors not captured in the FRAX model (e.g., frailty, falls, vitamin D deficiency, increased bone turnover, interval significant decline in bone density) and possible under- or over-estimation of fracture risk by FRAX. Procedure Note Jr Mcfadden MD - 08/10/2022 BONE DENSITY Lumbar Spine T-score is -1.0 (SD relative to 20-29 y/o adult) Z-score is +1.3 (SD relative to age matched peers) This is normal by criteria defined by the WHO. Left Hip T-score is -1.6 Z-score is +0.4 This is consistent with osteopenia by criteria defined by the WHO. Comparison exam(s): significant decrease in bone density of hip andlumbar spine when compared to most recent bone density examination Confidence level is +/-95%. Impression: Based on the World Health Organization criteria, Lakshmi Miller shouldbe classified as having osteopenia. This patient has a 11% risk of majorosteoporotic fracture and a 2.0% risk of hip fracture over the next 10years. (World Health Organization Fracture Risk Assessment) [facility] Department of Internal Medicine recommendsusing National Osteoporosis Foundation (NOF) guidelines in treatmentdecisions related to osteoporosis. NOF guidelines suggest consideringtreatment for postmenopausal women and men aged 50 or older presentingwith the following: History of hip or vertebral fracture. T-score less than or equal to -2.5 (DXA) at the femoral neck, total hip,or spine, after appropriate evaluation to exclude secondary causes. Low bone mass (T-score between -1.0 and -2.5 at the femoral neck or spine)AND a 10-year probability of a hip fracture greater than or equal to 3% ORa 10-year probability of a major osteoporosis-related fracture greaterthan or equal to 20% based on the [place]-adapted WHO algorithm Please note that all treatment decisions require clinical judgment andconsideration of individual patient factors, including patientpreferences, co-morbidities, previous drug use, risk factors not capturedin the FRAX model (e.g., frailty, falls, vitamin D deficiency, increasedbone turnover, interval significant decline in bone density) and possibleunder- or over-estimation of fracture risk by FRAX. Ryan Sellers MD IM DXA PROCEDURES Final Result * Hepatitis C Screening (03/04/2014) [facility] Hepatitis C Screening abstracted Historical Provider HEALTH MAINTENANCE Final Result from Last 3 Months or Most Recently Relevant to Health Maintenance Insurance MEDICARE [facility] Care Teams Assistance Coordinator Relationship Specialty Start Date End Date Ryan Sellers MD [address] [place] [address] PCP - General 09/07/04
== END 2025-03-20 09:19 | disposition home or self-care (01) ==
LOC: HO.HSM 08:43
PROVIDERS: PCP Internal Medicine; Referring Provider Internal Medicine; Visit Provider Registered Nurse
DX: G30.9 Alzheimer's disease, unspecified (principal); F02.80 Dementia in other diseases classified elsewhere, unspecified severity, without behavioral disturbance, psychotic disturbance, mood disturbance, and anxiety
CPT/HCPCS: 99213

== ENCOUNTER → 2025-03-20 08:42 | Outpatient (BNVA) | payer MEDICARE, OTHER, SELFPAY | PROVIDERS: PCP Internal Medicine; Referring Provider Internal Medicine; Visit Provider Registered Nurse | DX: G30.9 Alzheimer's disease, unspecified (principal); F02.80 Dementia in other diseases classified elsewhere, unspecified severity, without behavioral disturbance, psychotic disturbance, mood disturbance, and anxiety; Z79.899 Other long term (current) drug therapy | CPT/HCPCS: 99212 ==